=== PATIENT | female | born 2000 | race Two or more races ===

== ENCOUNTER 2022-01-24 17:09 | Emergency (ER) | payer OTHER ==
[~2022-01-24] VITALS: Ht 162.6 cm; Wt 52.2 kg
== END 2022-01-24 20:13 | disposition home or self-care (01) ==
LOC: EMR PED 17:09 → ER 17:12 → EMR PED 17:12 → ER 20:13
DX: R50.9 Fever, unspecified (principal); Z20.822 Contact with and (suspected) exposure to COVID-19; A49.3 Mycoplasma infection, unspecified site